=== PATIENT | female | born 1995 | race African-American/Black ===

== ENCOUNTER 2018-06-05 08:40 | Inpatient (IN) ==
[2018-06-05] MEDS ORDERED: BUTORPHANOL 2 MG/ML VIAL IV PRN (08:58)
[2018-06-05] MEDS ORDERED: ONDANSETRON 4 MG/2 ML VIAL IV PRN (08:58)
[2018-06-05] MEDS ORDERED: MEPERIDINE 50 MG/1 ML VIAL IV PRN (08:58)
[2018-06-05] MEDS ORDERED: LACTATED RINGERS 1,000 ML IV SCH (09:00)
[2018-06-05] MEDS ORDERED: ONDANSETRON 4 MG/2 ML VIAL IV ONE (09:01)
[2018-06-05] MEDS ORDERED: ePHEDrine 50 MG/ML AMP IV PRN (09:01)
[2018-06-05] MEDS ORDERED: hydrOXYzine HCL 25 MG/1 ML VIAL IM PRN (09:01)
[2018-06-05] MEDS ORDERED: LACTATED RINGERS 250 ML IV PRN (09:01)
[2018-06-05] MEDS ORDERED: NALOXONE 0.4 MG/ML VIAL IV PRN (09:01)
[2018-06-05] MEDS ORDERED: FAMOTIDINE 20 MG/2 ML VIAL IV ONE (09:01)
[2018-06-05] MEDS ORDERED: LACTATED RINGERS 1,000 ML IV ONE (09:01)
[2018-06-05] MEDS ORDERED: PROMETHAZINE 25 MG/1 ML VIAL IM ONE (09:01)
[2018-06-05] MEDS ORDERED: diphenhydrAMINE 50 MG/1 ML VIAL IV PRN ×2 (09:01)
[2018-06-05] MEDS ORDERED: CITRIC ACID/SODIUM CITRATE 30 ML UDCUP PO ONE (09:01)
[2018-06-05 09:24] LABS: Basophils % 0.2 % (0.0-0.8); Eosinophils # 0.1 10*3/uL (0.0-0.87); Eosinophils % 0.7 % (0.00-10.9); Hematocrit 38.4 VOL% (35.7-47.0); Hemoglobin 13.5 GM/DL (12.0-16.0); Immature Granulocytes % 0.7 %; Immature Granulocytes Absolute 0.09 #; Lymphocytes # 3.3 10*3/uL (1.4-4.0); Lymphocytes % 27.1 % (21.3-54.2); Mean Corpuscular HGB Conc 35.2 GM/DL (32-36); Mean Corpuscular Hemoglobin 31 PG (27-34); Mean Corpuscular Volume 88.7 FL (87-102); Mean Platelet Volume 10.1 FL (9.6-12.0); Monocytes # 0.8 10*3/uL (0.11-0.8); Neutrophils # 7.7 10*3/uL (1.4-7.4); Neutrophils % 64.3 % (38.7-73.9); Platelet Count 239 T/CUMM (130-400); Red Blood Count 4.33 MC/CUMM (3.8-5.5); Red Cell Distribution Width 12.4 % (9.3-17.3)
[2018-06-05] MEDS ORDERED: PENICILLIN G POTASSIUM INJ 6,000,000 UNIT in SODIUM CHLORIDE 0.9% 100 ML IV ONE (09:30)
[2018-06-05 09:48] LABS: Alanine Aminotransferase 16 U/L (13-56); Albumin 2.8 G/DL (3.4-5.0); Alkaline Phosphatase 107 U/L (45-117); Aspartate Amino Transferase 15 U/L (0-37); Bilirubin,Total < 0.39 MG/DL (0.2-1.0); Blood Urea Nitrogen 6 MG/DL (7-18); Calcium 9.2 MG/DL (8.5-10.1); Glucose 106 MG/DL (74-106); Osmolality,Calculated 270.8 MOS/KG (273-304); Sodium 137 MMOL/L (136-145); Total Protein 7.4 G/DL (6.4-8.3)
[2018-06-05] MEDS: fentaNYL 2 MCG/ROPIV 0.2% EPID 100 ML EPIDURAL SCH ×2 (10:43→23:58)
[2018-06-05] MEDS: OXYTOCIN/LR 20 UNIT/1,000 ML BAG IV SCH ×2 (15:02→21:08)
[2018-06-05] MEDS ORDERED: PENICILLIN G POTASSIUM INJ 3,000,000 UNIT in SODIUM CHLORIDE 0.9% 100 ML IV SCH (15:30)
[2018-06-05] MEDS ORDERED: miSOPROStol 200 MCG TABLET ONE (15:52)
[2018-06-05] MEDS ORDERED: LIDOCAINE 1% 50 ML VIAL ONE (15:52)
[2018-06-05] MEDS ORDERED: METHYLERGONOVINE 0.2 MG/1 ML AMP ONE (15:53)
[2018-06-05] MEDS ORDERED: RHO(D) IMMUNE GLOBULIN 300 MCG SYRINGE IM ONE (20:36)
[2018-06-05] MEDS ORDERED: ACETAMINOPHEN 325 MG TABLET PO SCH (20:36)
[2018-06-05] MEDS ORDERED: DIPH/TET/ACEL PERT BOOSTER VACCINE 0.5 ML VIAL IM ONE (20:36)
[2018-06-05] MEDS ORDERED: MEASLES/MUMPS/RUBELLA VACCINE 0.5 ML VIAL SUBCUT ONE (20:36)
[2018-06-05] MEDS ORDERED: BENZOCAINE 20%/MENTHOL 0.5% SPRAY 56 GM CAN TOP PRN (20:36)
[2018-06-05] MEDS ORDERED: HYDROCORTISONE 2.5% RECTAL CREAM 30 GM TUBE TOP PRN (20:36)
[2018-06-05] MEDS ORDERED: WITCH HAZEL PADS 100/JAR TOP PRN (20:36)
[2018-06-05] MEDS ORDERED: BISACODYL 10 MG SUPP RECTAL PRN (20:36)
[2018-06-05] MEDS ORDERED: LANOLIN 50% CREAM 0.3 OZ TUBE TOP PRN (20:36)
[2018-06-05] MEDS: KETOROLAC 30 MG/1 ML VIAL IV SCH (21:00)
[2018-06-05] MEDS: DOCUSATE SODIUM 100 MG CAPSULE PO SCH (21:03)
[2018-06-05] MEDS: ACETAMINOPHEN 500 MG TABLET PO SCH (21:15)
[2018-06-06] MEDS: ACETAMINOPHEN 500 MG TABLET PO SCH (03:51)
[2018-06-06] MEDS: KETOROLAC 30 MG/1 ML VIAL IV SCH (03:53)
[2018-06-06 04:52] LABS: Basophils % 0.1 % (0.0-0.8); Eosinophils # 0.1 10*3/uL (0.0-0.87); Eosinophils % 0.4 % (0.00-10.9); Hematocrit 33.1 VOL% (35.7-47.0); Hemoglobin 11.4 GM/DL (12.0-16.0); Immature Granulocytes % 0.6 %; Immature Granulocytes Absolute 0.08 #; Lymphocytes # 2.8 10*3/uL (1.4-4.0); Lymphocytes % 19.9 % (21.3-54.2); Mean Corpuscular HGB Conc 34.4 GM/DL (32-36); Mean Corpuscular Hemoglobin 30 PG (27-34); Mean Platelet Volume 10.4 FL (9.6-12.0); Monocytes # 1.2 10*3/uL (0.11-0.8); Monocytes % 8.6 % (1.7-12.7); Neutrophils % 70.4 % (38.7-73.9); Platelet Count 213 T/CUMM (130-400); Red Blood Count 3.76 MC/CUMM (3.8-5.5); Red Cell Distribution Width 12.8 % (9.3-17.3); White Blood Count 14.2 T/CUMM (4-12)
[2018-06-06] MEDS: DOCUSATE SODIUM 100 MG CAPSULE PO SCH ×2 (10:15→22:04)
[2018-06-06] MEDS: IBUPROFEN 800 MG TABLET PO SCH ×2 (14:21→22:04)
[2018-06-07 07:39] VITALS: BP 126/63
[2018-06-07] MEDS: DOCUSATE SODIUM 100 MG CAPSULE PO SCH (08:59)
[2018-06-07] MEDS ORDERED: INFLUENZA VIRUS VACCINE 0.5 ML SYRINGE IM ONE ×2 (09:04→10:47)
== END 2018-06-07 11:15 | disposition home or self-care (01) | DRG 807 ==
LOC: N.LDOUT 08:40 → N.LD 08:42 → N.OB 20:22
PROVIDERS: ADMIT Obstetrics & Gynecology; ATTEND Obstetrics & Gynecology

== ENCOUNTER 2022-02-09 06:08 | Inpatient (IN) ==
[2022-02-09] MEDS ORDERED: miSOPROStoL 200 MCG TABLET RECTAL PRN (07:39)
[2022-02-09] MEDS ORDERED: BUTORPHANOL 2 MG/ML VIAL IV PRN (07:39)
[2022-02-09] MEDS ORDERED: ONDANSETRON 4 MG/2 ML VIAL IV PRN (07:39)
[2022-02-09] MEDS ORDERED: MEPERIDINE 50 MG/1 ML VIAL IV PRN (07:39)
[2022-02-09] MEDS ORDERED: OXYTOCIN/LR 20 UNIT/1,000 ML BAG IV ONE ×2 (07:39→16:36)
[2022-02-09] MEDS ORDERED: METHYLERGONOVINE 0.2 MG/1 ML AMP IM PRN (07:39)
[2022-02-09] MEDS ORDERED: TRANEXAMIC ACID 1,000 MG in SODIUM CHLORIDE 0.9% 100 ML IV PRN (07:39)
[2022-02-09] MEDS ORDERED: CARBOPROST TROMETHAMINE 250 MCG/ML AMP IM PRN (07:39)
[2022-02-09] MEDS ORDERED: LACTATED RINGERS 1,000 ML IV SCH ×3 (08:00→09:30)
[2022-02-09] MEDS: OXYTOCIN/LR 20 UNIT/1,000 ML BAG IV SCH ×2 (08:05→18:09)
[2022-02-09] MEDS ORDERED: ePHEDrine 50 MG/ML VIAL IV PRN ×2 (08:11→09:28)
[2022-02-09] MEDS ORDERED: CITRIC ACID/SODIUM CITRATE 30 ML UDCUP PO ONE (08:11)
[2022-02-09] MEDS ORDERED: LACTATED RINGERS 1,000 ML IV ONE (08:11)
[2022-02-09] MEDS ORDERED: FAMOTIDINE 20 MG/2 ML VIAL IV ONE (08:11)
[2022-02-09] MEDS ORDERED: fentaNYL 100 MCG/2 ML VIAL IV ONE (08:11)
[2022-02-09 08:15] LABS: Basophils % 0.2 % (0.0-0.8); Eosinophils # 0.1 10*3/uL (0.0-0.87); Eosinophils % 0.6 % (0.00-10.9); Hematocrit 36.7 VOL% (35.7-47.0); Hemoglobin 12.9 GM/DL (12.0-16.0); Immature Granulocytes % 0.6 %; Immature Granulocytes Absolute 0.07 #; Lymphocytes # 2.5 10*3/uL (1.4-4.0); Lymphocytes % 23.5 % (21.3-54.2); Mean Corpuscular HGB Conc 35.1 GM/DL (32-36); Mean Corpuscular Volume 88.6 FL (87-102); Mean Platelet Volume 10.7 FL (9.6-12.0); Monocytes # 0.7 10*3/uL (0.11-0.8); Monocytes % 6.8 % (1.7-12.7); Neutrophils % 68.3 % (38.7-73.9); Platelet Count 240 T/CUMM (130-400); Red Blood Count 4.14 MC/CUMM (3.8-5.5); Red Cell Distribution Width 13.3 % (9.3-17.3); White Blood Count 10.8 T/CUMM (4-12)
[2022-02-09] MEDS ORDERED: PROMETHAZINE 25 MG/1 ML VIAL IM ONE ×2 (08:32→09:28)
[2022-02-09] MEDS ORDERED: ONDANSETRON 4 MG/2 ML VIAL IV ONE ×2 (08:32→09:28)
[2022-02-09] MEDS ORDERED: diphenhydrAMINE 50 MG/1 ML VIAL IV PRN ×4 (08:32→09:28)
[2022-02-09] MEDS ORDERED: hydrOXYzine HCL 25 MG/1 ML VIAL IM PRN ×2 (08:32→09:28)
[2022-02-09 08:34] LABS: Alanine Aminotransferase 13 U/L (13-56); Albumin 2.7 G/DL (3.4-5.0); Alkaline Phosphatase 172 U/L (45-117); Aspartate Amino Transferase 17 U/L (0-37); Bilirubin,Total < 0.39 MG/DL (0.20-1.00); Blood Urea Nitrogen 7 MG/DL (7-18); Calcium 9.3 MG/DL (8.5-10.1); Carbon Dioxide 18 MMOL/L (21-32); Chloride 108 MMOL/L (98-107); Glucose 84 MG/DL (74-106); Osmolality,Calculated 264.2 MOS/KG (273-304); Sodium 134 MMOL/L (136-145); Total Protein 7.5 G/DL (6.4-8.2)
[2022-02-09] MEDS ORDERED: fentaNYL 2 MCG/ROPIV 0.2% EPID 100 ML EPIDURAL ONE (08:43)
[2022-02-09] MEDS ORDERED: NALOXONE 0.4 MG/ML VIAL IV PRN (09:28)
[2022-02-09] MEDS ORDERED: fentaNYL 2 MCG/ROPIV 0.2% EPID 100 ML EPIDURAL SCH (09:30)
[2022-02-09] MEDS ORDERED: miSOPROStoL 200 MCG TABLET ONE (12:34)
[2022-02-09] MEDS ORDERED: SODIUM CHLORIDE 0.9% 0 ML IV ONE (12:34)
[2022-02-09] MEDS ORDERED: METHYLERGONOVINE 0.2 MG/1 ML AMP ONE (12:34)
[2022-02-09] MEDS ORDERED: CARBOPROST TROMETHAMINE 250 MCG/ML AMP IM ONE (12:34)
[2022-02-09] MEDS ORDERED: TRANEXAMIC ACID 1,000 MG/10 ML VIAL ONE (12:34)
[2022-02-09 13:23] LABS: Cord Venous Blood PCO2 46.5 MMHG; Cord Venous Blood PO2 25.3
[2022-02-09] MEDS ORDERED: RHO(D) IMMUNE GLOBULIN 300 MCG SYRINGE IM ONE (16:36)
[2022-02-09] MEDS ORDERED: ACETAMINOPHEN 325 MG TABLET PO PRN (16:36)
[2022-02-09] MEDS ORDERED: oxyCODONE/ACETAMINOPHEN 5-325 MG TABLET PO PRN ×2 (16:36)
[2022-02-09] MEDS ORDERED: WITCH HAZEL PADS 100/JAR TOP PRN (16:36)
[2022-02-09] MEDS ORDERED: LANOLIN 50% CREAM 0.3 OZ TUBE TOP PRN (16:36)
[2022-02-09] MEDS ORDERED: BISACODYL 10 MG SUPP RECTAL PRN (16:36)
[2022-02-09] MEDS ORDERED: HYDROCORTISONE 2.5% RECTAL CREAM 30 GM TUBE TOP PRN (16:36)
[2022-02-09] MEDS ORDERED: MEASLES/MUMPS/RUBELLA VACCINE 0.5 ML VIAL SUBCUT ONE (16:36)
[2022-02-09] MEDS ORDERED: BENZOCAINE 20%/MENTHOL 0.5% SPRAY 56 GM CAN TOP PRN (16:36)
[2022-02-09] MEDS ORDERED: DIPH/TET/ACEL PERT BOOSTER VACCINE 0.5 ML VIAL IM ONE (16:36)
[2022-02-09] MEDS: IBUPROFEN 800 MG TABLET PO PRN ×2 (17:02→22:34)
[2022-02-09] MEDS ORDERED: ACETAMINOPHEN/CODEINE 300-30 MG TABLET PO PRN (20:00)
[2022-02-09] MEDS: ACETAMINOPHEN/CODEINE 300-30 MG TABLET PO PRN (20:10)
[2022-02-09] MEDS: DOCUSATE SODIUM 100 MG CAPSULE PO SCH (20:15)
[2022-02-09] MEDS ORDERED: miSOPROStoL 200 MCG TABLET PO ONE (21:05)
[2022-02-09 21:44] LABS: Basophils % 0.2 % (0.0-0.8); Eosinophils # 0.1 10*3/uL (0.0-0.87); Eosinophils % 0.4 % (0.00-10.9); Hematocrit 32.6 VOL% (35.7-47.0); Hemoglobin 11.3 GM/DL (12.0-16.0); Immature Granulocytes % 0.6 %; Immature Granulocytes Absolute 0.08 #; Lymphocytes # 2.6 10*3/uL (1.4-4.0); Lymphocytes % 18.1 % (21.3-54.2); Mean Corpuscular HGB Conc 34.7 GM/DL (32-36); Mean Corpuscular Volume 89.6 FL (87-102); Mean Platelet Volume 9.9 FL (9.6-12.0); Monocytes # 1.1 10*3/uL (0.11-0.8); Neutrophils % 72.7 % (38.7-73.9); Platelet Count 220 T/CUMM (130-400); Red Blood Count 3.64 MC/CUMM (3.8-5.5); Red Cell Distribution Width 13.2 % (9.3-17.3); White Blood Count 14.2 T/CUMM (4-12)
[2022-02-10 05:49] LABS: Basophils % 0.3 % (0.0-0.8); Eosinophils # 0.1 10*3/uL (0.0-0.87); Hematocrit 33.1 VOL% (35.7-47.0); Hemoglobin 11.2 GM/DL (12.0-16.0); Immature Granulocytes % 0.5 %; Immature Granulocytes Absolute 0.07 #; Lymphocytes # 3.5 10*3/uL (1.4-4.0); Lymphocytes % 24.7 % (21.3-54.2); Mean Corpuscular HGB Conc 33.8 GM/DL (32-36); Mean Corpuscular Volume 89.5 FL (87-102); Mean Platelet Volume 10.2 FL (9.6-12.0); Monocytes # 1.1 10*3/uL (0.11-0.8); Monocytes % 8.1 % (1.7-12.7); Neutrophils % 65.4 % (38.7-73.9); Platelet Count 217 T/CUMM (130-400); Red Cell Distribution Width 13.2 % (9.3-17.3)
[2022-02-10] MEDS: DOCUSATE SODIUM 100 MG CAPSULE PO SCH ×2 (08:25→21:40)
[2022-02-11 08:55] VITALS: BP 147/80
[2022-02-11] MEDS: ACETAMINOPHEN/CODEINE 300-30 MG TABLET PO PRN (08:56)
[2022-02-11] MEDS: DOCUSATE SODIUM 100 MG CAPSULE PO SCH (08:56)
[2022-02-11 09:45] LABS: Hematocrit 31.8 VOL% (35.7-47.0); Hemoglobin 10.9 GM/DL (12.0-16.0)
== END 2022-02-11 11:40 | disposition home or self-care (01) | DRG 560 ==
LOC: N.LD 06:08 → N.OB 16:37
PROVIDERS: ADMIT Obstetrics & Gynecology; ATTEND Obstetrics & Gynecology